=== PATIENT | female | born 2000 | race African-American/Black ===

== ENCOUNTER 2021-06-28 19:17 | Emergency (ER) | payer MEDICAID ==
[~2021-06-28] VITALS: Ht 167.6 cm; Wt 91.0 kg
[2021-06-28] MEDS ORDERED: ONDANSETRON HCL 4MG/2ML INJ IV STA (19:58)
[2021-06-29] LABS: BASOPHILS % 0.4 % (0.0-2.0); EOSINOPHILS % 1.6 % (0.0-5.0); HEMATOCRIT. 30.2 % (36.0-48.0); HEMOGLOBIN. 9.5 g/dL (12.0-16.0); LYMPHOCYTES % 17.6 % (20.0-50.0); MEAN CORPUSCULAR HEMOGLOBIN 22.6 pg (28.0-32.0); MEAN CORPUSCULAR VOLUME 71.9 fL (81.0-99.0); MEAN PLATELET VOLUME 8.1 fl (7.4-10.4); MONOCYTES % 6.7 % (2.0-8.0); NEUTROPHILS % 73.7 % (40.0-76.0); PLATELET 381 x1000/uL (130-400); RED BLOOD CELL COUNT 4.21 mill/uL (4.2-5.4); RED CELL DISTRIBUTION WIDTH 17.5 % (11.6-14.6)
[2021-06-29 00:03] LABS: CHLORIDE 110 mEq/L (98-107)
[2021-06-29] MEDS ORDERED: ACETAMINOPHEN 325MG TABLET PO ONE (02:30)
[2021-06-29] MEDS ORDERED: SODIUM CHLORIDE 0.9% 1,000 ML IV ONE (02:30)
[2021-06-29 05:01] LABS: CLARITY URINE CLOUDY (CLEAR); COLOR URINE YELLOW (YELLOW); KETONES URINE TRACE (NEGATIVE); LEUKOCYTE ESTERASE URINE NEGATIVE (NEGATIVE); NITRITE URINE NEGATIVE (NEGATIVE); OCCULT BLOOD URINE NEGATIVE (NEGATIVE); PROTEIN URINE 1+ (NEGATIVE); SPECIFIC GRAVITY URINE 1.033 (1.005-1.030)
[2021-06-29] MEDS ORDERED: ONDA4TAB5 MT (05:11)
[2021-06-29] MEDS ORDERED: ONDANSETRON 4MG ODT PO ONE (05:15)
[2021-06-29 05:44] VITALS: BP 135/82
== END 2021-06-29 05:47 | disposition home or self-care (01) ==
LOC: ER 19:17
DX: A08.4 Viral intestinal infection, unspecified (principal)
CPT/HCPCS: 36415; 76705; 80053; 81003; 83690; 85025; 99284; J7030; Q0162